=== PATIENT | male | born 1950 | race African-American/Black ===

== ENCOUNTER 2018-12-12 13:54 | Inpatient (IN) | payer BC, OTHER ==
[~2018-12-12] VITALS: Ht 193.7 cm; Wt 77.3 kg
[~2018-12-12 13:54] MED LIST: APIDRA; APIDRA SC; ASPIRIN EC325 M1 PO; BACLOFEN 10MG T10 M1 PO; BENADRYL25 MG PO; BYSTOLIC10 MG PO; CEPHALEXIN 500500 M1 PO; CIPROFLOXACIN500 M3 PO; CLEOCIN HCL150 MG PO; COREG PO; DEMADEX20 MG PO; FLOMAX PO; GABAPENTIN100 MG PO; HUMALOG100 UNIT/1 SUBQ; HYDROCODON-ACE1 EAC7 PO; K-DUR 20 MEQ T20 MEQ PO; KEFLEX500 MG PO; LANTUS SC; LANTUS SUBQ; MOBIC15 MG PO; MULTIVITAMINS PO; PLAVIX 75 MG TA75 M1 PO; PLAVIX 75 MG TA75 MG PO; POTASSIUM20 PO; PROSCAR 5MG TABL5 M1 PO; PROSCAR 5MG TABL5 MG PO; STOOL SOFTENER1 EAC2 PO; TAMSULOSIN HCL0.4 M1 PO; TYLENOL EX-STR500 M2 PO; ZOCOR 10 MG TAB10 MG PO; ZOLOFT100 MG PO
--- NOTE | 2018-12-12 15:09 | NUR ---
BLACK MALE ADMITTED BY MISSY FROM [facility] FOR SI. HE HAS HAD A CVA MANY YEARS AGO AND ATTEMPTED TO CUT HIMSELF WITH A KNIFE ON THE WRIST. HE HAS RT. SIDED WEAKNESS FOLLOWING THE CVA. HE ALSO IS A IDDM AND ON DIABETIC DIET. HE HAS A HISTORY OF BOTH ROTATOR CUFFS SURGERY AND BYPASS IN BOTH LEGS, GALLBLADDER REMOVED. ALL THESE ARE >10 YEARS AGO. PT. ANSWERING QUESTIONS WITH A YES OR NO. , XANDER, IS HIS DPOA, ACCOMPANIED PT. AND ANDWERED QUESTIONS. BOTH WERE VERY COOPERATIVE. HE IS ALLERGIC TO PENICILLIN AND CONTRAST DYE. ADMIT VS [id number], P 73, R14, O2 96, T 98.4. BLOOD SUGARS WILL BE AC/HS. HE IS W/C BOUND, A 2 PERSON LIFT. HE WEIGHS 170.4 LBS. HE WAS ON ISOLATION FOR SHINGLES, HOWEVER, ALL ANTIBIOTICS HAVE BEEN TAKEN AND HIS SKIN (FOREHEAD) HAS PRETTY MUCH CLEARED UP. HE IS A FULL CODE. HIS LAST BM WAS 12/11/18. HE WAS ASSISTED TO BED ASSISTED BY 2 STAFF. PT. WENT TO SLEEP QUICKLY.
[2018-12-12 19:13] VITALS: BP 147/68
[2018-12-12 22:57] VITALS: BP 147/68
[2018-12-12 23:07] VITALS: BP 147/68
--- NOTE | 2018-12-13 03:55 | NUR ---
PT IN BED AT CHANGE OF SHIFT. COOPERATIVE WITH ASSESSMENT. DENIES SELF HARM, BUT APPEARS DEPRESSED. PT UP AND OUT TO DAYROOM UNTIL 2229, THEN ASSISTED TO BED. ABLE TO GET HIM IN AND OUT OF BED WITH 2 PERSON ASSIST. TOOK HS MEDS W/O PROBLEM. ABLE TO SWALLOW MEDS WITH H20. RECEIVED A ONE TIME DOSE OF 7.5 HYDROCODONE AT HS. UP X 1 DURING THE NIGHT, HE WAS UNABLE TO SLEEP EARLY ON. SAT IN DAY AREA. PROVIDE URINAL BUT UNABLE TO RELIEVE HIMSELF. FINALLY AROUND 0230 WAS INCONTINENT IN BED. RECEIVED TYLENOL FOR SHINGLES ABOUT 0330. SLEPT INTERMITTANTLY.
[2018-12-13 06:01] LABS: ABSOLUTE NEUTROPHILS 9.3 thou/uL (1.4-8.2); BASOPHILS 0.8 % (0.0-2.0); EOSINOPHILS 0.3 % (0.0-3.0); HEMATOCRIT 44.4 % (42.0-52.0); LYMPHOCYTES 11.5 % (24.0-44.0); MCH 30.4 pg (26.0-34.0); MCHC 33.7 g/dL (28.0-37.0); MCV 90.2 fL (80.0-100.0); MONOCYTES 4.9 % (1.0-8.0); PLATELET COUNT 289 thou/uL (150-400); POLYS 82.5 % (36.0-66.0); RBC 4.92 mil/uL (4.50-6.00); RDW 13.6 % (10.5-14.5); WBC 11.2 thou/uL (4.0-11.0)
[2018-12-13 06:11] LABS: CALCIUM 9.9 mg/dL (8.5-10.1); MAGNESIUM 1.9 mg/dL (1.8-2.4); POTASSIUM 4.6 mmol/L (3.5-5.1)
--- NOTE | 2018-12-13 09:37 | H ---
[facility] [place] [address] [place] [address] HISTORY AND PHYSICAL Name: GIORGIO MURILLO JR Room #: 519B-B ADM IN M.R.#: [id number] Admission: 12/12/18 ������������������ Attend Phys: Jones Hardwick DO Discharge: ������������������ Date of : 48 Report #: [id number] THIS REPORT FOR: //name// CC: Jones Vera DATE OF SERVICE: 12/12/2018 MONUMENT MASON: Todd Duarte MD. REASON FOR ADMISSION: Suicidal ideation with plans of cutting his wrists at the [facility]. SOURCES OF INFORMATION: Chart review from [facility] and reviewed the patient's past medical records at [facility]. HISTORY OF PRESENT ILLNESS: This is a 68-year-old disabled black male appearing older than stated age. The patient denies recollection of alleged statements of intent or plan to harm himself. He states that he has been at [facility] for some time and he does acknowledge recently being taken to [facility] for evaluation of right-sided weakness, also shingles outbreak. PAST PSYCHIATRIC HISTORY: The patient denies past psychiatric history. According to the note done by the nurse practitioner at the facility, he was readmitted on 12/05/2018 to [facility] and his brief admission at [facility] was due to shingles and right-sided weakness with headache, that had negative stoke work-up. His workup was negative for stroke and his headache treated conservatively and resolved. At baseline, he is in a wheelchair due to previous cerebrovascular accident and hemiplegia, which affected the right side of his body. There have been multiple falls, which possibly may be behavioral in nature. The patient was admitted for physical and occupational therapy with a goal to return home with his . CURRENT MEDICATIONS: At the nursing facility includes simvastatin, oxybutynin, multivitamin, metoprolol, Ultram, losartan, Levemir, Plavix, finasteride, Flexeril, Humalog, aspirin, vitamin D. ALLERGIES: PENICILLIN AND IODINE DYE. PAST MEDICAL HISTORY: Includes cerebrovascular accident, hypertension, diabetes mellitus, neurogenic bladder, neuropathy. SOCIAL HISTORY: He states he is , retired from disability, lives with his . Denies alcohol, tobacco or illicit drug use. Additional information obtained from 06/[address] Arnold. [address] [address] HISTORY AND PHYSICAL Name: GIORGIO MURILLO Room #: 519B-B [facility] IN ..#: [id number] Admission: 12/12/18 ������������������ Attend Phys: Jones Hardwick DO Discharge: ������������������ Date of : 48 Report #: [id number] PAST MEDICAL HISTORY: Arthritis, blood transfusion, diabetes, heart problems, high blood pressure, infection, stroke, swelling of limbs and wound infection. PAST SURGICAL HISTORY: Left shoulder 2012, bilateral lower extremity stents 2011, amputation of fifth toe inside of foot repair treatments due to infection in 2011, urinary retention following surgery. FAMILY HISTORY: Cancer, diabetes, heart attack at an early age. SOCIAL HISTORY: Nonsmoker. Retired, . In 2013, he consumed alcohol 1-2 times per week. No history of substance use disorder. REVIEW OF SYSTEMS: Brief 10-point review of systems was done other than the chronic findings of right-sided weakness and headache due to the shingles, is negative. LABORATORY DATA: Recent laboratory done in nursing facility on 12/07/2018, sodium was 133, potassium 4.4, chloride 98, bicarbonate 25, glucose 245, BUN 30, creatinine 1.1, calcium 9.9. EGFR 67.8. CBC: White count 10.4, H and H 14.8 and 44.4, platelets 258. Urinalysis on 12/07/2018 was 2+ glucose, specific gravity 1.025 and moderate calcium oxalate. The patient was seen again on 12/10/2018, noted to be up in chair, more alert today. Continued confusion from report per patient. Per family, increased confusion over the weekend. Labs from ER were collected and are normal limits. He denied pain. Additionally, the patient had made statement about wanting to harm himself to speech therapist. Also, he is managed by Dr. Tate's team from the nursing facility. MEDICATIONS: At the time of admission to the hospital: As follows, metoprolol succinate 100 mg p.o. daily. He was on simvastatin 20 mg daily that was converted to atorvastatin 10 mg daily, senna daily, aspirin 325 mg daily, pantoprazole 40 mg p.o. daily, sertraline 100 mg p.o. b.i.d., prednisone 10 mg p.o. b.i.d., I am not clear the start and stop date, may be given for the headache. He is on sliding scale insulin, he gets 10 units of Lantus at night. He is on Plavix 75 mg p.o. daily, he was given a one-time hydrocodone (and denied), oxybutynin 5 mg p.o. t.i.d., gabapentin 200 mg p.o. t.i.d., calcium with vitamin D, otherwise normal PRNs. Blood sugar on admission to the unit at 17:34 was 243, postprandial 263. PHYSICAL EXAMINATION: VITAL SIGNS: Temperature 36.7, pulse 72, respirations 16, BP 147/68, pulse ox 100%. MUSCULOSKELETAL: He is wheelchair bound. Obvious right hemiparesis. His left palmomental reflex is strongly positive. No cogwheeling in his left upper extremity. His tongue was midline. His pupils were bilaterally equal, but [facility] [address] [place] [address] HISTORY AND PHYSICAL Name: GIORGIO MURILLO Room #: 519B-B ADM IN M.R.#: [id number] Admission: 12/12/18 ������������������ Attend Phys: Jones Hardwick DO Discharge: ������������������ Date of : 48 Report #: [id number] nonreactive to light. The patient was oriented to year and otherwise presently states that he does not know the month or the day of the week. MENTAL STATUS EXAM: This is a well-developed, disheveled, older than appearing black male. Attention intact to conversation. Concentration fair. Speech slurred slow. Thought process linear, limited. Thought content responds to questioning. Some psychomotor retardation with psychomotor agitation. Denied auditory, visual or tactile hallucinations. Denied current suicidal intent or plan. Denied hopelessness, some helplessness. Denied homicidal intent or plan. Memory not formally tested, but known to be impaired. I will attempt to do a response to the SLUMS tomorrow, so that he can complete. Insight limited. Judgment limited. Fund of knowledge, no greater than average. 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 DEVELOPMENTAL HISTORY: Born in [place] and raised there. He has been twice. He has several children as well as grandchildren. Denies family history of psychiatric illness. FAMILY HISTORY: Medical illness as above. FORMULATION: A 68-year-old black male admitted for suicidal ideation, currently denying that. The patient will get PT, OT, speech therapy consult. DIAGNOSIS: Unspecified depressive disorder. We will rule him out for major depressive disorder, cognitive impairment, unspecified. We will perform further cognitive screening. PLAN: Evaluate, stabilize, obtain collateral. I have not spoken to his , Masha, yet. At this point in time, we will assess tomorrow his cognition more formally. The patient reports he is currently having marital problems as this may be a stressor. I would like to see if I can get him off the steroids as that can contribute significantly to mood lability and depression. The patient likely will require director funeral care placement. Time spent on this case is approximately 40 minutes. STRENGTHS: He is insured. He is at a nursing facility. WEAKNESSES: Advancing age, multiple comorbidities including urinary incontinence, peripheral vascular disease and others. [address] [address] HISTORY AND PHYSICAL Name: GIORGIO MURILLO Room #: 519B-B ADM IN .R.#: [id number] Admission: 12/12/18 ������������������ Attend Phys: Jones Hardwick DO Discharge: ������������������ Date of : 48 Report #: [id number] He is a full code at this time and weight was 77.292 kilos, 182.88 cm in height. ��������������������������������������������� <ELECTRONICALLY SIGNED> ���������������������������������������� By: Jones Hardwick DO ��������������������������������������������� 12/13/18 0937 2255 0040 Jones Hardwick, /nt
--- NOTE | 2018-12-13 09:39 | NUR ---
[id number]: Report rec. from noc shift, care assumed. Pt in DR, returned to room 0740, refused a.m. meal, attendance to DR and group. Attendance procedure explained to pt. Pt responds with "I'm not going to the DR for lunch." Takes meds whole w/o difficulty. Transfer assistance x2 for all ADL's, PT/OT consults ordered.
[2018-12-13 10:41] VITALS: BP 141/76
--- NOTE | 2018-12-13 17:49 | NUR ---
WOUND FOLLOW UP: PT. WAS SEEN TODAY BY DR. GOMEZ AND MYSELF. PT. HAS SMALL HEALING ABRASIONS TO HIS LEFT KNEE. PT. REPORTS THAT HE SUFFERED A FALL. RECOMMENDATIONS: WOUND CARE TO LEFT KNEE: GENTLY CLEANSE WITH WOUND CLEANSER OR NORMAL SALINE, COVER WITH OPTIFOAM BORDER, COMPLETE CARES M/W/F AND PRN SOILAGE. PT. AND STAFF NURSE WERE INSTRUCTED ON PLAN OF CARE.
[2018-12-13 20:08] VITALS: BP 122/55
[2018-12-13 21:54] VITALS: BP 122/55
[2018-12-13 21:56] VITALS: BP 122/55
--- NOTE | 2018-12-14 01:30 | NUR ---
PT UP IN DAY AREA WATCHING BALL GAME. PLEASANT AND COOPERATIVE THIS PM. TOOK HS MEDS PRESCRIBED W/O PROBLEM. ASSISTED TO BED AFTER SNACKS. CHILO. SLEPT WELL THROUGH THE NIGHT TO THIS POINT.
[2018-12-14 07:05] VITALS: BP 138/47
--- NOTE | 2018-12-14 08:05 | NUR ---
0650: Admitted to room 520-B via gerney from ER. Pt awake, oriented to name, place, denies situation for admission. Skin w/d, color pink, 2+ edema noted to BLE, DP/PT pulses bilat weak, LE warm to touch. Superficial abrasion noted above Rt eye, and superficial abrasion below Rt eye, pt states it is result of falling on carpet @ hotel. Pt making statements regarding he has no one who cares, denies feelings of harming himself or other. Gauze wrap dsg to Lt wrist, post self inflicted cut, dsg D/I, denies pain at site. Lung fileds diminished bilat, denies cough, O2SAT 95% on R/A. Abd round, soft, bowel sounds active x4 quads, states last BM on 12/12. Wears glasses (on), has own teeth, personal belongings in [facility] security, request made to be brought to floor. See complete admission assessment, VS= 98.0-97-19, 129/84. 0710: Dr. Hardwick notified via phone of pts admission, med review completed, new orders rec. to be here to assess pt. Pt will continue 1:[address] Hardwick. Pt informed and educated on admission process and procedures.
--- NOTE | 2018-12-14 16:05 | NUR ---
PSYCHOSOCIAL ASSESSMENT Diagnosis: UNSPECIFIED DEPRESSIVE DISORDER Admit Date: 12/12/18 Psychiatrist: SAW Symptoms associated with current admission: Others Anxiety/panic Hallucinations Depressed mood Violence/aggression Presenting problems: Pt was cursing at staff. Pt was exhibiting suicidal ideation. Pt was confused. Precipitating Factors: Non-compliance psychothx Change living environment Comments: CVA WITH RT. SIDED WEAKNESS History of High Risk Behavors: Hx of self harm Suicide Risk Factors: B A-Signs of alcohol/substance abuse w/ suicide ideation B-Recent suicidal thoughts or attempts C-Recent thoughts or attempts of harming someone else D-Altered mental status due to psychiatric/chem dep etiology E-The behavior exists - add comment PSYCHIATRIC HISTORY Age of onset: 68 Prior hospitalizations: Denies hx hospitalization Hospital names and dates, if available: Most Recent Outpatient HX: Additional information: Legal Status: Voluntary Guardian/Conservatorship type: DPOA Contact name: Fanta Rabago Contact phone: [phone] Other: Name: [phone] Phone: Other legal issues: (Arrests/convictions Current Status) None P.O. Name and Phone #: FAMILY HISTORY Place of : [place], [place] Raised in: [place] # Siblings & order: Pt has two sibiling (Middle) Describe relationships within family of origin: Pt has a relationship with his sibilings but not very close with them. Any psychiatric or substance abuse problems within family of origin: Y Has patient been sexually or physically abused, neglected or been taken advantage of financially? N Has the abuse been reported? N Other pertinent family information: Marital history/significant relationships: Domestic violence: N Children ages & who is caring for them: Pt has three adult children Is child welfare involved? N Drug history: None Alcohol Use: Frequency: Quantity: Have you ever felt you ought to Cut down on drinking? Have people Annoyed you by criticizing your drinking? Have you ever felt bad or Guilty about your drinking? 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 AXIS SCREENING TOOL Banks I Mood Disorders: Depression Banks II Personality/Mental Retardation: Banks III Medical Impairment: HTN DM Other Banks IV Problem(s) with: Health care services Other psych/environ prob Banks V: 40-Major impairment Additional Banks comments: PERSONAL BACKGROUND Relevant cultural issues (ethnicity, values, beliefs, spiritual): Spiritual Methodist: Cheondoism Importance of adventist to patient: High What hobbies/interests does the patient have? [employer] Traveling Reading Sexual orientation (relevant impact to current treatment): Heterosexual : Where did you serve: Branch of service: [employer] Rank: Discharge status: Honorable Are you a combat ? Y Occupational/Work: Do you work? N Do you want to work? N How many hours do you work/week? 0 How many jobs have you had in the past 5 years? 0 Do you need assistance finding a job? N Does the patient need assistance in job training? N Source of income: SSI Does patient have a Payee? N Payee name: Fanta Rabago Approximate monthly income: 1000 Does patient have adequate funds for next 30 days? N Education background: Associate degree Highest grade completed: 12th grade Other Educational/training programs: Functional deficits: Yes, see explain Explain functional deficits: Memory Frustration Tolerance Problem Solving Response to Structure Current living situation: House/apartment Address/phone where pt. is living: Pt is lving with his Does the patient plan to continue there after DC? Yes Patient lives with: Spouse Will family/significant other be involved in treatment? Other community support services utilized: Pt will need a LTC or HH Support System Available (family/friend) Name: Fanta Rabago Relationship: Name: Relationship: Name: Rosy Rico Relationship: Sister in-law Patient strengths: Family support Community support Other Patient's assets: Verbal Positive support system Patient's weaknesses: Chronic hx mental illness Health problems Poor social skills Additional weaknesses: Pt has had a stroke, and cause him to be slow to communicate. Patient's perception of current social media senior associate/case management needs: Pt stated that SS/ CM is a person that advocate for those who cannot. PRELIMINARY DISCHARGE PLAN Discharge plan/Community resource contacts: Pt will discharge home with home health or nursing facility Discharge needs: Pt will need a referral to NF or HH assistance with his health. Problems anticipated on discharge: Compliance w/ med regimen Comments: (factors affecting DC plan/pt. response/interventions) Pt will discharge in his care to a nursing facility or home health.
--- NOTE | 2018-12-14 18:42 | NUR ---
7a-7p: Report rec from noc shift, care assumed. Assisted to w/c with assist x2 and gait belt. Denies pain or discomfort, see QD assessment for details. Dsg to Lt knee D/I, changed 12/13. Mood is calm, cooperative with staff. Wears briefs, uses urinal for voiding. here to visit this evening, update give. Takes meds whole w/o difficulty, feeds self with set-up assistance, "picky" eater, pt given food choices. No behaviors noted this shift.
[2018-12-14 20:28] VITALS: BP 142/43
[2018-12-14 20:31] VITALS: BP 107/71
--- NOTE | 2018-12-15 03:11 | NUR ---
NOTED TO BE RESTLESS INITIAL PART OF NIGHT-TO BED AT APPROX 2000-AND WAS COOPERATIVE WITHTAKING HS MEDICATIONS -REPORTED BY PANTS BUSHELER WHO WAS ROUNDING ON PT TO BE PUTTING LEGS OVER SIDE OF BED AND WAS RESISTIVE WITH HER ATTEMPTS TO REPOSITION-STATING "FUCK YOU"-BEGAN TO YELL "HELP" AND WHEN ENTERED ROOM WAS FOUND TO HAVE FEET ON FLOOR AND OUT OF BED-ASKING TO GO HOME-WHEN TOLD IT WAS 3AM AND THERE WAS NO TRANSPORTATION STATES "CALL A TAXI" WAS FOUND TO HAVE MALFUNCTIONING BED-NO EXIT ALARM-PLACED IN BED A-ASKING FOR DIET COKE REPEATADLY-GIVEN DIET CAFFEINE FREE SPRITE AND HE WAS APPROCIATIVE OF THAT-THREATNING TO PANTS BUSHELER IN ROOM STATING"I HATE HER" "I WILL HURT HER" REQUIRES MAX ASSIST OF 2 STAFF TO TRANSFER TO AND FROM BED/CHAIR. TYLENOL 625MG GIVEN PO PRN FOR HEAD/SCALP PAIN.
[2018-12-15 10:12] VITALS: BP 119/72
[2018-12-15 22:13] VITALS: BP 148/75
--- NOTE | 2018-12-15 22:29 | NUR ---
ASSUMED CARE OF THE PT AT 191 PM. THE PT IS LYING IN BED AT THIS TIME. REQUESTING DIET COKE, GAVE THE PT DIET SPRITE TO DRINK. HEART RATE REGULAR, LUNGS CLEAR BILATERALLY, RESP., EVEN, AND UNLABORED. +BS HEARD IN ALL 4 QUADRANTS. HAS DRESSINGS WHICH ARE C/D/I TO BILATERAL KNEES AND LEFT LOWER LEG. DENIES PAIN AT THIS TIME. REFUSING HIS MEDICATIONS AND HIS INSULIN AT THIS TIME. CALLING THE STAFF BITCHES, AND TRYING TO HIT STAFF. REMAINS ON 12 MINUTE CHECKS. WILL CONTINUE TO MONITOR.
--- NOTE | 2018-12-16 01:39 | NUR ---
THE PT HAS BEEN SLEEPING OFF AND ON THIS LEARNING FACILITATOR. REMAINS ON 12 MINUTE CHECKS FOR HIS SAFETY.
--- NOTE | 2018-12-16 06:04 | NUR ---
THE PT SLEPT 5.6 HOURS LAST NIGHT.
[2018-12-16 07:10] VITALS: BP 144/78
--- NOTE | 2018-12-16 11:29 | NUR ---
ASSUMED PATIENT CARE AT 0700, IN BED RESTING AT TIME. ASSISTED UP FOR BREAKFAST STAFF X3. ATE SMALL AMOUNT OF BREAKFAST; SPOUSE VISITING AT THIS TIME. SEEN BY DR. PRIETO, MEDICATIONS DISCUSSED; WILL BE REVIEWED BY DR. PRIETO FOR ANY FURTHER ORDERS. CONTINUE TO MONITOR.
--- NOTE | 2018-12-16 16:45 | NUR ---
PATIENT'S AFFECT HAS BEEN FLAT, DROWSY; MOOD, QUIET AND NON-VERBAL; NO BEHAVIORS DISPLAYED TO DATE THIS SHIFT. SON VISITING AT THIS TIME, SITTING WITH PATIENT IN DINING ROOM. CONTINUE TO MINITOR.
--- NOTE | 2018-12-16 19:10 | NUR ---
NURSING ATTEMPTED TO GET PATIENT'S BED SCALE WEIGHT THIS DATE. UNCUCCESSFUL R/T NON-FUNCTIONAL BED SCALES.
--- NOTE | 2018-12-16 19:30 | NUR ---
PATIENT RECEIVED TYLENOL 650 MG FOR SEVERE HEADACHE AT 1920.
[2018-12-16 20:51] VITALS: BP 112/52
--- NOTE | 2018-12-17 00:58 | EKG ---
[place] [address] [facility] [place] [address] ELECTROCARDIOGRAM REPORT Name: GIORGIO MURILLO Room #: 519B-B ADM IN M.R.#: [id number] ������������������ Admission: 12/12/18 ������������������ Attend Phys: Jones Hardwick DO Discharge: ������������������ Date of : 48 Report #: [id number] ����������������������������������������������������������������� [id number] THIS REPORT FOR: //name// [facility] Test Date: 2018-12-16 Test Time: 14:19:06 Pat Name: GIORGIO MURILLO Department: Room: 519[facility] Gender: M Primary Care Coordinator: ROBERTO : 1950 Requested By: Jones Hardwick Order Number: [id number] MD: Tom Vanessa Measurements Intervals [place] Rate: 74 P: 38 WA: 169 QRS: -46 QRSD: 81 T: 114 QT: 414 QTc: 460 Interpretive Statements Sinus rhythm Inferior q waves noted significance unknown Nonspecific ST/T wave changes Compared to ECG 07/14/2014 07:08:43 no significant changes Electronically Signed On 12-17-2018 0:58:26 CDT by Tom Vanessa [email or web address] ��������������������������������������������� <ELECTRONICALLY SIGNED> ���������������������������������������� By: Tom Vanessa MD ��������������������������������������������� 12/17/18 0058 1419 1419 Tom Vanessa MD /EPI
[2018-12-17 01:09] VITALS: BP 112/52
--- NOTE | 2018-12-17 03:33 | NUR ---
PT IN BED AT [facility] OF SHIFT. RESTING COMFORTABLY. DURING NIGHT, PT INCONTINENT OF STOOL X3. DARK BROWN, STICKY SOFT. LINEN CHANGED X2 DUE TO COPIOUS OUTPUT. TYLENOL GIVEN X1 FOR HEADACHE. SLEPT WELL OTHERWISE.
[2018-12-17 07:15] VITALS: BP 100/59
--- NOTE | 2018-12-17 07:35 | HC ---
[facility] [place] [address] CONSULTATION Name: GIORGIO MURILLO JR Room #: 519B-B ADM IN M.R.#: [id number] Admission: 12/12/18 ������������������ Attend Phys: Jones Hardwick DO Discharge: ������������������ Date of : 48 Report #: [id number] THIS REPORT FOR: //name// CC: Jones Vera DATE OF SERVICE: 12/13/2018 CHIEF COMPLAINT: Traumatic wounds to the left knee. HISTORY OF PRESENT ILLNESS: This is a 68-year-old male patient who was admitted to the Geropsych Unit here at [facility]. He was noted to have fallen and sustained abrasions to his left knee. He was sitting in bed. He does not exactly recall the circumstances surrounding his injury to his knee, but denies any pain associated with this. He was admitted for some suicidal ideations while at the [facility]. PAST MEDICAL HISTORY: Includes cerebrovascular accident, hypertension, diabetes mellitus, neurogenic bladder and neuropathy. ALLERGIES: PENICILLIN and IODINE DYE. MEDICATIONS: Include oxybutynin, metoprolol, Ultram, losartan, Levemir, Plavix, finasteride, Flexeril, Humalog, aspirin, vitamin D. SOCIAL HISTORY: He denies alcohol or tobacco use. FAMILY HISTORY: Positive for diabetes and coronary artery disease. REVIEW OF SYSTEMS: Thirteen-point review of systems is negative other than the findings in history of present illness, some right-sided weakness and the abrasions to his knee. PHYSICAL EXAMINATION: VITAL SIGNS: At this time include temperature 36.5, pulse 76, respiratory rate of 16, blood pressure 122/55. GENERAL: This is a chronically ill-appearing male patient who appears to be in no distress. HEENT: Head is normocephalic. Nose and throat clear. NECK: Supple. LUNGS: Clear. ABDOMEN: Soft. Bowel sounds present. EXTREMITIES: Lower extremities demonstrate that there are multiple abrasions to the left knee, there is evidence of some new epithelization. No evidence of exposed deep structures. [facility] [address] [place] [address] CONSULTATION Name: CHIDIGIORGIO URIAH Room #: 519B-B ADM IN M.R.#: [id number] Admission: 12/12/18 ������������������ Attend Phys: Jones Hardwick DO Discharge: ������������������ Date of : 48 Report #: [id number] CLINICAL IMPRESSION: 1. Abrasions to the left knee. 2. Recent suicidal ideation. 3. Unspecified depressive disorder. RECOMMENDATIONS: At this point in time, the patient will need nutritional support to maximize wound healing. We will recommend a simple dressing with bordered foam to be changed on a Monday, Monday and Monday basis and as needed. The patient may be ambulatory and shower as desired. I appreciate being asked to see him in consultation. ��������������������������������������������� <ELECTRONICALLY SIGNED> ���������������������������������������� By: Kiko Farah MD ��������������������������������������������� 12/17/18 0735 [id number] Kiko Farah MD /bianca
[2018-12-17 08:00] VITALS: BP 100/59
--- NOTE | 2018-12-17 08:30 | NUR ---
PT EATING OUT IN DINNING ROOM. PT ABLE TO SWALLOW MEDS WHOLE WITHOUT ANY DIFFICULTY. PT STATED HE WOULD LIKE TO GO HOME. PT ABLE TO FEED SELF WITH MINIMAL ASSISTANCE. LUNGS CLEAR. NO OTHER CONCERNS.
--- NOTE | 2018-12-17 10:07 | NUR ---
Nutrition followup: po intake has improved up to 75% of meals since food preferences have been identified. No new wt. BG elevated 173-338. If intake continues to be >75% meals, then can discontinue glucerna supplements. Changed nutrition status to low risk.
--- NOTE | 2018-12-17 15:09 | NUR ---
WOUND FOLLOW UP: PT. WAS SEEN TODAY BY DR. GOMEZ AND MYSELF. PT. ABRASIONS TO HIS LEFT KNEE ARE HEALING WELL. GRANULATION TISSUE IS PRESENT THROUGHT. RECOMMENDATIONS: CONTINUE WITH CURRENT PLAN OF CARE. PT. AND STAFF NURSE WERE INSTRUCTED ON PLAN OF CARE.
--- NOTE | 2018-12-17 15:11 | NUR ---
GOOD DAY TODAY. NO ISSUES AT THIS TIME.
--- NOTE | 2018-12-17 18:25 | NUR ---
ADM TYLENOL 325MG 2 TABS FOR COMPLAINTS OF HEADACHE OF 8 ON 1-10 SCALE.
[2018-12-17 19:34] VITALS: BP 150/70
[2018-12-17 23:05] VITALS: BP 150/70
--- NOTE | 2018-12-18 04:15 | NUR ---
PT QUIET AND COOPERATIVE.TOOK HS MEDS AFTER SNACKS AND WAS ASSISTED TO BED. UP XI DURING THE NIGHT. INCONTINANT OF SMALL AMOUT OF STOOL. SAT UP FOR ABOUT AN HOUR AND WAS RETURNED TO BED. STATED THAT HE WANTS TO GO HOME.SLEPT WELL THROUGH THE NIGHT.
[2018-12-18 07:10] VITALS: BP 107/44
--- NOTE | 2018-12-18 07:30 | NUR ---
PT UP TO W/C THIS AM. PT STATED HIS BUTT AND HEAD HURT. PT LUNGS CLEAR, DIMINISHED TO BASES. PT HAS DRESSING TO LEFT KNEE AND RT WHEAT THAT ARE INTACT. PT STATED HE WANTED TO GO HOME TODAY, STATED HIS AND SON WILL TAKE CARE OF HIM.
[2018-12-18 09:00] VITALS: BP 107/44
[2018-12-18] MEDS ORDERED: CLOPIDOGREL75 MG PO (11:01)
[2018-12-18] MEDS ORDERED: LIPITOR10 MG PO (11:02)
[2018-12-18] MEDS ORDERED: METOPROLOL SUCC50 MG PO (11:04)
[2018-12-18] MEDS ORDERED: ASPIRIN81 M2 PO (11:04)
[2018-12-18] MEDS ORDERED: NEURONTIN 400400 M1 PO (11:08)
[2018-12-18] MEDS ORDERED: CALCIUM 600 +1 EA13 PO (11:09)
[2018-12-18] MEDS ORDERED: ZOLOFT100 MG PO (11:09)
[2018-12-18] MEDS ORDERED: PANTOPRAZOLE SO40 M1 PO (11:14)
[2018-12-18] MEDS ORDERED: COLACE 100 MG100 MG PO (11:14)
[2018-12-18 11:50] VITALS: BP 107/44
[2018-12-18 12:51] VITALS: BP 107/44
--- NOTE | 2018-12-18 12:53 | NUR ---
Patient Name: GIORGIO MURILLO JR Admission Date: 12/12/18 DISCHARGE PLAN: Pt will be discharge home with his , at [address] [place] [address]. Care Assessment: Pt was assesed by Dr. Hardwick, and diagnosed Major Neurocognitve Disorder. Level II Assessment: None Transportation: Pt will be transported by [facility]. Special Instructions/Notes: Pt will need HH through [facility]. DISCHARGE TO FACILITY: Facility: Phone: Fax: Address: Contact Name: Phone: PCP: MERLY Psychiatrist:
--- NOTE | 2018-12-18 13:06 | NUR ---
ADM TYLENOL 325MG 2 TABS PO FOR HEADACHE PAIN OF 8 ON 1-10 SCALE. PT LYING DOWN NOW AFTER LUNCH.
--- NOTE | 2018-12-18 16:20 | NUR ---
PT HERE TO PICK HIM UP. PT FINGERSTICK CHECKED PRIOR TO DISCHARGE, PT ALSO HAD SNACK BEFORE LEAVING. VERBALY UNDERSTOOD D/C ORDERS.
--- NOTE | 2018-12-20 21:40 | D ---
[facility] [place] [address] DISCHARGE SUMMARY Name: GIORGIO MURILLO JR Room #: 519B-B [facility] IN M.R.#: [id number] Admission: 12/12/18 ������������������ Attend Phys: Jones Hardwick DO Discharge: 12/18/18 ������������������ Date of : 48 Report #: [id number] THIS REPORT FOR: //name// CC: Jones Vera DATE OF SERVICE: 12/18/2018 ATTENDING PHYSICIAN: Jones Hardwick DO MAINFRAME SYSTEMS ADMINISTRATOR: Jones Cassidy MD. 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 Unspecified depression, resolved. MEDICAL DIAGNOSES: Constipation, stable; history of cerebrovascular accidents with residual right hemiparesis; mild expressive aphasia; diabetes mellitus type 2; hypertension; hyperlipidemia; urinary incontinence on Ditropan, now discontinued. DISCHARGE DIET: Heart healthy and diabetic, 1800-calorie. DISCHARGE MEDICATIONS: As follows: Plavix 75 mg p.o. at bedtime for stroke and heart attack prevention; atorvastatin 10 mg p.o. daily for hyperlipidemia; metoprolol succinate tabs 50 mg ER daily; aspirin enteric coated 81 mg p.o. daily for cardioprotection; gabapentin 400 mg p.o. t.i.d. at 0900, 1500 and 1700 for mood stabilization; sertraline 100 mg p.o. daily for history of depression; calcium carbonate with vitamin D3 one tab p.o. daily for supplementation; docusate 100 mg capsule p.o. b.i.d. bowel motility; Protonix 40 mg p.o. daily at 0700 for GERD; Lantus was given 10 units subcutaneous at bedtime. REASON FOR ADMISSION: Suicidal ideation. HOSPITAL COURSE: The patient was admitted to Geriatric Psychiatry Unit. The focus was on getting him out of bed for some participation. Neurontin was titrated up to a dose of 400 mg t.i.d. Had several meetings throughout with his , she was debating between placement versus home care. She elected home care in the end. She works at home relative to where patient will need 20/03 supervision and is not to be left alone. Fanta who lives with them and helps with cares. ALLERGIES: IODINE DYE AND OTHERS. LABORATORY DATA: For this patient on the , white count was 11.2, H and H 15.2 and 44.4, platelet count 289, absolute neutrophil count 9.3, blood sugars [address] [address] DISCHARGE SUMMARY Name: GIORGIO MURILLO JR Room #: 519B-B [facility] IN M.R.#: [id number] Admission: 12/12/18 ������������������ Attend Phys: Jones Hardwick DO Discharge: 12/18/18 ������������������ Date of : 48 Report #: [id number] last 24 hours were between 139 and 260. OBJECTIVE: VITAL SIGNS: Temperature 35.9, pulse rate 68, respirations 13, BP 107/34. MUSCULOSKELETAL: Non ambulatory, hemiparetic in reclined chair. MENTAL STATUS EXAM: This is a well-developed, disabled black male, apparently stated age. Attention limited. Concentration limited. Speech is slow. Thought process is linear and goal directed. Thought content, overall poverty of thoughts. Denied SI, denied HI. Denied auditory, visual, or tactile hallucinations. Grossly oriented to time. Insight limited. Judgment fair to limited. Fund of knowledge were below average. Prognosis for this patient is guarded given the cognitive concerns and stroke history. ��������������������������������������������� <ELECTRONICALLY SIGNED> ���������������������������������������� By: Jones Hardwick DO ��������������������������������������������� 12/20/182139 [id number] 49 Jones Hardwick DO /nt
== END 2018-12-18 16:36 | disposition home or self-care (01) | DRG 884 ==
LOC: SBH 13:54
PROVIDERS: Nurse Practitioner; ADMIT Psychiatry & Neurology Psychiatry
DX: F01.51 Vascular dementia, unspecified severity, with behavioral disturbance (principal); E43 Unspecified severe protein-calorie malnutrition; R45.851 Suicidal ideations; F32.9 Major depressive disorder, single episode, unspecified; M19.90 Unspecified osteoarthritis, unspecified site; E11.9 Type 2 diabetes mellitus without complications; K59.00 Constipation, unspecified; E78.5 Hyperlipidemia, unspecified; R32 Unspecified urinary incontinence; S81.002A Unspecified open wound, left knee, initial encounter; X58.XXXA Exposure to other specified factors, initial encounter; Y93.89 Activity, other specified; Y92.89 Other specified places as the place of occurrence of the external cause; Z88.0 Allergy status to penicillin; Z91.041 Radiographic dye allergy status; Z86.73 Personal history of transient ischemic attack (TIA), and cerebral infarction without residual deficits; Y99.8 Other external cause status; Z68.20 Body mass index [BMI] 20.0-20.9, adult
CPT/HCPCS: 10880